=== PATIENT | female | born 1970 | race Caucasian/White ===

== ENCOUNTER → 2016-07-25 | Outpatient (CLI) | payer BC ==
[~2016-07-25] MED LIST: ALPRAZOLAM0.25 MG PO; ASPIRIN81 M1 PO; BLACK COHOSH540 MG PO; BUPROPION XL300 M1 PO; CLARITIN10 M2 PO; COZAAR; DULOXETINE HCL30 MG PO; IBUPROFEN800 MG PO; JANUVIA PO; LIPITOR; LORATADINE5 MG/5 M3; LYRICA200 MG PO; METFORMIN HCL500 M1 PO; METFORMIN HCL500 M4; METFORMIN PO; MOTION SICKNESS25 M5 PO; NEURONTIN PO; PRILOSEC; TRULICITY0.75 MG/0. SQ; VALTREX PO; VIMOVO DR 375-1 EACH PO; VOLTAREN75 MG PO; WELLBUTRIN; ZESTRIL5 MG PO; ZOLOFT PO
--- NOTE | ~2016-07-25 | CT95 ---
[facility]. [facility] A Service of [facility] RADIOLOGY TEXT RESULTS PATIENT: MARSHAL LOPEZ LOCATION: [facility] : 68 UNIT #: [id number] AGE: [address]: Leda Montejo MD SEX: F ORDER DR: [id number] [address] [id number] [id number] O MR#: [id number] Acc #: [id number] NAME: MARSHAL LOPEZ : 1970 SEX: F STUDY DATE/TIME: 07/25/2016 16:47 UNIT: [facility] ROOM: STUDY DESCRIPTION: CT Lower Ext Rt Wo Cont Attending Physician: Madeleine Montejo M.D. Referring Physician: Madeleine Montejo M.D. Ordering Physician: Madeleine Montejo M.D. Primary Care Physician: Kallie Lin M.D. MEDICAL IMAGING REPORT This report is preliminary unless electronic signature is present. EXAM CT right ankle HISTORY 45-year-old female pain and swelling right ankle. No known injury. Anterior lateral ankle pain which is chronic. No history of trauma. COMPARISON Foot and ankle films 07/22/2016. TECHNIQUE Thin section axial images performed through the right ankle with multiplanar reconstructed images reviewed at a workstation. This CT examination was performed with one or more of the following radiation dose reduction techniques: automatic exposure control, adjustment of mA and/or kV according to patient size, and iterative reconstruction. FINDINGS Bone structure and alignment appears normal. Minimal hypertrophic record changer tester the dorsum of the head of the talus and dorsum of the navicular. This is felt to be of doubtful clinical significance. Small os trigonum. Ankle mortise maintained. Subtalar joint unremarkable. No occult fracture. Ankle tendons appear normal by CT. Mild soft tissue swelling and edema about the foot and ankle. Ankle ligaments appear intact by CT. Sinus tarsi, tarsal tunnel and plantar fascia unremarkable. Mild fatty atrophy of the abductor digiti minimi muscle. There is a small plantar calcaneal spur. IMPRESSION 1. Minimal hypertrophic change off the dorsum of the head of the talus and all the dorsal aspect of the navicular. This is probably degenerative in nature. Of doubtful clinical significance. 2. Mild soft tissue swelling about the ankle. [facility]. [facility] A Service of [facility] RADIOLOGY TEXT RESULTS PATIENT: MARSHAL LOPEZ LOCATION: [facility] : [birth year] UNIT #: [id number] AGE: [address]: Leda Montejo MD SEX: F ORDER DR: 3. Fatty atrophy abductor digiti minimi muscle. Dictated by... Cheri Rios M.D. THIS IS AN ELECTRONICALLY VERIFIED REPORT Cheri Rios M.D. at 07/27/2016 1:58 PM KIRSETN/adeline TD: 07/26/2016 08:24 JOB #: [id number] MEDICAL IMAGING REPORT Page 1 of 1
== END | disposition home or self-care (01) ==
LOC: SCT 16:26
DX: M25.571 Pain in right ankle and joints of right foot (principal); M62.571 Muscle wasting and atrophy, not elsewhere classified, right ankle and foot; M79.89 Other specified soft tissue disorders
CPT/HCPCS: 73700